=== PATIENT | female | born 1970 | race Native Hawaiian/Other Pacific Islander ===

== ENCOUNTER 2022-01-14 14:59 | Outpatient (CLI) | payer BC | END 2022-01-14 19:14 | disposition home or self-care (01) | LOC: MAMMO 14:59 | PROVIDERS: ATTEND Nurse Practitioner Family | DX: Z12.31 Encounter for screening mammogram for malignant neoplasm of breast (principal) ==

== ENCOUNTER 2022-01-28 15:58 | Outpatient (CLI) | payer BC | END 2022-01-28 19:02 | disposition home or self-care (01) | LOC: US 15:58 | PROVIDERS: ATTEND Nurse Practitioner Family | DX: R92.8 Other abnormal and inconclusive findings on diagnostic imaging of breast (principal) ==